=== PATIENT | male | born 1960 | race Caucasian/White ===

== ENCOUNTER 2022-12-29 07:01 | Observation (INO) | payer OTHER ==
[2022-12-26 12:21] VITALS: BMI 24.1
[2022-12-29] MEDS ORDERED: Lidocaine 1% MPF 2 ML VIAL ONE (07:45)
[2022-12-29] MEDS ORDERED: Levofloxacin 500 mg/D5W 100 ml Premix Bag ONE (07:45)
[2022-12-29 08:07] LABS: #Eosinphils 0.2 thou/uL (0.0-0.7); #Monocytes 0.3 thou/uL (0.11-0.59); #Neutrophils 1.5 thou/uL (1.40-6.50); %Basophils 1.3 % (0.0-1.0); %Eosinophils 5.6 % (0.0-10.0); %Lymphocytes 35.7 % (21.0-51.0); %Neutrophils 47.1 % (42.0-75.0); Hemoglobin 14.2 g/dL (14.0-18.0); Mean Corpuscular Hemoglobin 34.4 pg (27.0-31.0); Mean Corpuscular Volume 95.4 fl (78.0-98.0); RBC Distribution Width 12.1 % (11.5-14.5); Red Blood Cell (RBC) Count 4.13 mill/uL (4.70-6.10); White Blood Cell (WBC) Count 3.2 10x3/uL (4.8-10.8)
[2022-12-29 08:10] LABS: Platelet Count 115 10x3/uL (130-400)
[2022-12-29 08:26] LABS: Anion Gap 10 mmol/L (10-20); BUN (Urea Nitrogen) 21 mg/dL (8.4-25.7); Calc. Creatinine Clearance 78 mL/min (70-130); Calcium 8.9 mg/dL (7.8-10.44); Carbon Dioxide 28 mmol/L (23-31); Chloride 106 mmol/L (98-107); Estimated GFR 72; Glucose 105 mg/dL (80-115); Potassium 4.3 mmol/L (3.5-5.1); Sodium 140 mmol/L (136-145)
[2022-12-29] MEDS ORDERED: Vancomycin 1 GM VIAL ONE (08:27)
[2022-12-29] MEDS ORDERED: Fentanyl 250 MCG/5 ML VIAL ONE (09:02)
[2022-12-29] MEDS ORDERED: Dexamethasone 20 MG/5 ML VIAL ONE (09:17)
[2022-12-29] MEDS ORDERED: Lidocaine 1% PF 5 ML VIAL ONE (09:17)
[2022-12-29] MEDS ORDERED: PROPOFOL 200 MG/20 ML VIAL ONE (09:17)
[2022-12-29] MEDS ORDERED: Rocuronium Bromide 10 MG/ML (10ML VIAL) ONE (09:17)
[2022-12-29] MEDS ORDERED: NEOSTIGMINE 3 MG/3 ML SYR 3 MG/3 ML SYRINGE ONE (09:17)
[2022-12-29] MEDS ORDERED: Glycopyrrolate 0.2 MG/ML 5 ML SYRINGE ONE (09:17)
[2022-12-29] MEDS ORDERED: ePHEDrine Sulfate 50 MG/10 ML VIAL ONE (09:17)
[2022-12-29] MEDS ORDERED: Ondansetron PF 4 MG/2 ML Vial ONE (09:17)
[2022-12-29] MEDS ORDERED: Clindamycin/D5W 900 mg/50 ml Premix Bag ONE (09:34)
[2022-12-29] MEDS ORDERED: HYDROcodone/Acetaminophen 10/325 mg Tablet PO PRN (11:07)
[2022-12-29] MEDS ORDERED: Promethazine 25 MG TAB PO PRN (11:07)
[2022-12-29] MEDS ORDERED: Cyclobenzaprine 10 MG TAB PO PRN (11:07)
[2022-12-29] MEDS ORDERED: Ondansetron PF 4 MG/2 ML Vial IVP PRN (11:07)
[2022-12-29] MEDS ORDERED: diphenhydrAMINE 50 MG/ML VIAL IVP PRN (11:07)
[2022-12-29] MEDS ORDERED: Mag-Al 1200 mg/1200 mg/30 ML UDCUP PO PRN (11:07)
[2022-12-29] MEDS ORDERED: Milk Of Magnesia 30 ML UDCUP PO PRN (11:07)
[2022-12-29] MEDS ORDERED: traMADol HCl 50 MG TAB PO PRN (11:07)
[2022-12-29] MEDS ORDERED: Acetaminophen 325 MG TAB PO PRN (11:07)
[2022-12-29] MEDS ORDERED: fentaNYL 50 mcg/mL 1 mL Vial ONE ×3 (11:20→12:50)
[2022-12-29] MEDS ORDERED: Ondansetron HCl/PF 4 MG/2 ML Vial IVP PRN (11:21)
[2022-12-29] MEDS ORDERED: Promethazine HCl 25 MG/ML VIAL IM PRN (11:21)
[2022-12-29] MEDS ORDERED: HYDROmorphone 0.5 MG/0.5 ML SYRINGE ONE ×4 (11:27→12:06)
[2022-12-29] MEDS: HYDROcodone/Acetaminophen 10/325 mg Tablet PO PRN ×2 (15:27→20:27)
[2022-12-29] MEDS: Morphine 2 MG/ML VIAL SLOW IVP PRN ×2 (15:29→22:33)
[2022-12-29] MEDS: Sodium Chloride 0.9% 1,000 ML IV SCH (15:34)
[2022-12-29] MEDS: Clindamycin/D5W 600 MG in Premix Bag 1 BAG IVPB SCH (18:17)
[2022-12-30] MEDS: Sodium Chloride 0.9% 1,000 ML IV SCH ×2 (00:47→15:25)
[2022-12-30] MEDS: Clindamycin/D5W 600 MG in Premix Bag 1 BAG IVPB SCH ×2 (01:27→10:54)
[2022-12-30 15:23] VITALS: BP 110/78; TEMP 98
== END 2022-12-30 15:23 | disposition home or self-care (01) ==
LOC: SDC 07:01 → T4-A 14:46
PROVIDERS: ADMIT Neurological Surgery; ATTEND Neurological Surgery
PROC: 00NY0ZZ Release Lumbar Spinal Cord, Open Approach (ICD-10-PCS; principal; 2022-12-29)
PROC: [UNRECOGNIZED PROCEDURE] (2022-12-29)
PROC: 0SB20ZZ Excision of Lumbar Vertebral Disc, Open Approach (ICD-10-PCS; 2022-12-29)
DX: M48.061 Spinal stenosis, lumbar region without neurogenic claudication (principal); M43.16 Spondylolisthesis, lumbar region; Z88.0 Allergy status to penicillin
CPT/HCPCS: 36415; 80048; 85025; 93005; 93010; C1713; C1889; J1100; J1170; J1956; J2272; J2405; J2704; J3010; J3370; J3490; J7050